=== PATIENT | male | born 1970 | race Caucasian/White ===

== ENCOUNTER → 2022-04-12 | Day surgery (SDC) | payer BC ==
[~2022-04-12] MED LIST: Atropine 0.4 MG/ML SDV IVPUSH ONE; Glycopyrrolate 0.2 MG/ML 5 ML MDV IV ONE; Lactated Ringers 1,000 ML IV ONE; Propofol 200 MG/20 ML SDV IV ONE
== END ==
LOC: FB.SDS 05:57
PROVIDERS: ATTEND Surgery
DX: Z12.11 Encounter for screening for malignant neoplasm of colon (principal); K57.30 Diverticulosis of large intestine without perforation or abscess without bleeding; K58.9 Irritable bowel syndrome, unspecified; I10 Essential (primary) hypertension; F17.220 Nicotine dependence, chewing tobacco, uncomplicated; Z98.890 Other specified postprocedural states; Z86.010 Personal history of colon polyps; Z79.899 Other long term (current) drug therapy
CPT/HCPCS: 00811-QZ; J0461; J2704; J3490; J7120